=== PATIENT | male | born 1970 | race Caucasian/White ===

== ENCOUNTER 2017-03-06 21:40 | Emergency (ER) | payer BC ==
--- NOTE | ~2017-03-06 | CT4 ---
[facility] A Service of [facility] RADIOLOGY TEXT RESULTS PATIENT: NILESH GAN JR LOCATION: SED : 72 UNIT #: [id number] AGE: [address]: Vernon Carrington MD SEX: M ORDER DR: [id number] [place] [id number] E MR#: [id number] Acc #: [id number] NAME: NILESH GAN JR : 1970 SEX: M STUDY DATE/TIME: 03/06/2017 21:37 UNIT: SED ROOM: STUDY DESCRIPTION: CT Abd and Pelv Wo Cont Attending Physician: Vernon Carrington M.D. Ordering Physician: Vernon Carrington M.D. Primary Care Physician: Brandy Dugan M.D. MEDICAL IMAGING REPORT This report is preliminary unless electronic signature is present. EXAM CT abdomen and pelvis without contrast HISTORY Right flank pain x1 hour, history kidney stones. COMPARISON CT abdomen and pelvis 05/01/2016 FINDINGS Axial images performed through the abdomen and pelvis without contrast. Multiplanar reconstructed images reviewed at a workstation. This CT exam was performed with one or more of the following radiation dose reduction techniques: Automatic exposure control, adjustment of mA and/or kV according to patient size, and iterative reconstruction. ABDOMEN: Lung bases remarkable for a sizable bulla left lung base. This is unchanged from prior studies. There is a small proximal right ureteral stone measuring no more than 2-3 mm. Minimal right-sided hydronephrosis. Remainder of the solid organs appear normal. The GI tract unremarkable. PELVIS: Bladder, prostate appear normal. Osseous structures remarkable for mild L5-S1 degenerative changes. IMPRESSION 1. 3 mm proximal right ureteral stone with mild right-sided hydronephrosis. 2. Prominent bulla left lung base unchanged from prior study. Dictated by... [facility] A Service of [facility] RADIOLOGY TEXT RESULTS PATIENT: NILESH GAN JR LOCATION: SED : 71 UNIT #: [id number] AGE: [address]: Vernon Carrington MD SEX: M ORDER DR: Teodoro Virgen M.D. THIS IS AN ELECTRONICALLY VERIFIED REPORT Teodoro Virgen M.D. at 03/07/2017 2:04 PM RON/dianna TD: 03/06/2017 23:01 JOB #: [id number] MEDICAL IMAGING REPORT Page 1 of 1
[2017-03-06 21:21] LABS: BASOPHIL% 0.5 % (0-2.5); DIFF IND NO; EOSINOPHIL# 0.1 X10e3 (0-0.7); EOSINOPHIL% 1.3 % (0.0-7.0); HEMATOCRIT 41.4 % (38.0-50.0); HEMOGLOBIN 14.3 gm/dL (13.0-16.0); LYMPHOCYTE# 2.4 X10e3 (1.0-3.5); LYMPHOCYTE% 32.9 % (17.0-45.0); MEAN CELL VOLUME 89.4 FL (83-96); MEAN CORPUSCULAR HEMOGLOBIN 30.9 PG (28-34); MEAN CORPUSCULAR HGB CONC 34.6 g/dL (30-36); MEAN PLATELET VOLUME 8.1 FL (6.5-11.5); MONOCYTE# 0.5 X10e3 (0-1.0); MONOCYTE% 6.6 % (3.0-12.0); NEUTROPHIL# 4.3 X10e3 (1.5-7.1); NEUTROPHIL% 58.7 % (40-75); PLATELET COUNT 221 X10e3 (140-420); RED BLOOD COUNT 4.63 X10e (3.90-5.60); RED CELL DISTRIBUTION WIDTH 12.9 % (11.0-15.5); WHITE BLOOD COUNT 7.4 X10e3 (4.0-10.5)
[2017-03-06 21:34] LABS: BUN/CREATININE RATIO 15.45; CALCIUM SERUM 9.3 mg/dL (8.4-10.2); CREATININE SERUM 1.1 mg/dL (0.6-1.4); GLOM FILT RATE Estimated 80.7 mL/min (>60); POTASSIUM 3.7 mmol/L (3.5-5.1)
[~2017-03-06 21:40] MED LIST: ASPIRIN81 MG PO; FENOFIBRATE54 MG PO; LIPITOR80 MG PO; METFORMIN HCL500 M1 PO; NITROQUICK0.4 MG SL; OMEGA 3-6-9 11200 M1 PO; PROTONIX40 M1; SINGULAIR PO; ZYRTEC10 M1 PO
[2017-03-06 22:09] LABS: URINE SOURCE CLEAN CATCH
[2017-03-06 22:11] LABS: URINE APPEARANCE CLOUDY; URINE BLOOD 3+ (NEG); URINE COLOR RED; URINE GLUCOSE 300 MG/DL (NORM); URINE KETONE TRACE (NEG); URINE LEUKOCYTE ESTERASE TRACE (NEG); URINE NITRATE POS (NEG); URINE PROTEIN 2+ (NEG); URINE SPECIFIC GRAVITY >=1.030 (1.003-1.035)
[2017-03-06 22:12] LABS: MICRO INDICATED? YES; URINE BILIRUBIN NEG (NEG)
[2017-03-06 22:16] LABS: CULTURE INDICATED? YES; URINE BACTERIA 1+ (NEG); URINE MUCUS PRESENT; URINE RBC 200-300 /[HPF] (0-2); URINE SQUAMOUS EPITHELIAL CELL FEW /[HPF]
== END 2017-03-07 01:06 | disposition home or self-care (01) ==
LOC: SED 21:40
PROVIDERS: Emergency Medicine
DX: R11.0 Nausea (principal); E11.9 Type 2 diabetes mellitus without complications; I10 Essential (primary) hypertension; E78.5 Hyperlipidemia, unspecified; Z79.84 Long term (current) use of oral hypoglycemic drugs; Z79.82 Long term (current) use of aspirin; Z79.899 Other long term (current) drug therapy
CPT/HCPCS: 36415; 74176; 80048; 81003; 85025; 87086; 96361; 96374; 96375; 99284; J1170; J1885; J2270; J2405